=== PATIENT | male | born 1975 | race Hispanic/Latino ===

== ENCOUNTER 2025-01-06 19:48 | Emergency (ER) | payer SELFPAY ==
[~2025-01-06] VITALS: Ht 177.8 cm; Wt 40.4 kg
[2025-01-06 20:40] VITALS: PULSE 92; RESP 18; TEMP 99.5
[2025-01-06] MEDS: ONDANSETRON HCL 4 MG ORAL DISINTEGRATING TAB PO STA (20:54)
[2025-01-06] MEDS: KETOROLAC TROMETHAMINE 60 MG/2 ML VIAL IM STA (20:54)
[2025-01-06 23:00] LABS: BACTERIA,URINE FEW /HPF; BILIRUBIN,URINE NEGATIVE (NEGATIVE); CLARITY,URINE CLEAR (CLEAR); COLOR,URINE YELLOW (YELLOW); EPITHELIAL CELLS,URINE FEW /LPF; GLUCOSE, URINE NEGATIVE (NEGATIVE); KETONES,URINE NEGATIVE (NEGATIVE); LEUKOCYTE ESTERASE ,URINE NEGATIVE (NEGATIVE); NITRITE,URINE NEGATIVE (NEGATIVE); PH,URINE 6 (5 - 7); PROTEIN,URINE DIPSTICK NEGATIVE (NEGATIVE); RBC,URINE 0-5 /HPF (0-5); URINE UROBILINOGEN 0.2 mg/dL (0.2 - 1); WBC,URINE (MAN) 0-5 /HPF (0-5)
[2025-01-06] MEDS ORDERED: ULTRAM 50MG50 MG PO (23:33)
[2025-01-06] MEDS ORDERED: PREDNISONE20 MG PO (23:33)
[2025-01-06 23:38] VITALS: BP 132/95; PULSE 74; RESP 18; TEMP 98.9; O2SAT 100
== END 2025-01-06 23:39 | disposition home or self-care (01) ==
LOC: ER 19:56
DX: M54.50 Low back pain, unspecified (principal)
CPT/HCPCS: 74176; 81001; 99284; J1885; Q0162